=== PATIENT | female | born 1940 | race Caucasian/White ===

== ENCOUNTER → 2016-08-18 | Outpatient (CLI) | payer OTHER | LOC: BRMIMAGING 08:22 | PROVIDERS: ATTEND Family Medicine | DX: Z13.820 Encounter for screening for osteoporosis (principal); M81.0 Age-related osteoporosis without current pathological fracture; Z78.0 Asymptomatic menopausal state ==

== ENCOUNTER → 2017-02-01 | Outpatient (CLI) | payer OTHER | LOC: FLAB 12:56 | PROVIDERS: ATTEND Orthopaedic Surgery Orthopaedic Surgery of the Spine | DX: M51.36 Other intervertebral disc degeneration, lumbar region (principal); M48.06 Spinal stenosis, lumbar region; M51.26 Other intervertebral disc displacement, lumbar region ==

== ENCOUNTER 2017-02-02 09:05 | Inpatient (IN) | payer OTHER ==
--- NOTE | 2017-02-01 14:16 | GHP ---
[f rep st] PREOP HISTORY AND PHYSICAL DATE OF ADMISSION: 02/02/2017 HISTORY: The patient is a pleasant, 76-year-old woman well known to my practice. She has had a dale g history of chronic low back pain. More recently, however, in the past 3 weeks, she has developed severe left lower extremity pain, numbness, and inability to ambulate. She went to the emergency ro om where they performed an MRI and she was found to have a left L3-4 disk herniation with sequestrat ion proximally at the level of the L3 vertebral body. Her pain has been excruciating. She has soug ht my opinion as she would like to proceed with surgery rather than injections due to the severity o f her pain, which on a 1-10 scale is rated a 7 to an 8. Currently 80% to 90% of her symptoms are re ferable to the left lower extremity and the remainder is referable to low back pain. Valsalva type of maneuvers do worsen her pain. She denies any loss of bowel or bladder control. She is ambulatin g using a wheelchair. She has been taking Neurontin and prednisone. SOCIAL HISTORY: Negative for tobacco. Positive for social use of alcohol. FAMILY HISTORY: Heart disease. PAST MEDICAL HISTORY: Borderline hypertension, hypercholesterolemia. PAST SURGICAL HISTORY: Mitral valve repair with 3 vessel coronary artery bypass surgery. DRUG ALLERGIES: Compazine and topical iodine. MEDICATIONS: Pravastatin, metoprolol, lisinopril, citalopram, and hormone replacement. PHYSICAL EXAMINATION: VITAL SIGNS: Blood pressure is 132/88. GENERAL APPEARANCE: The patient is alert and oriented x3. CARDIAC: Regular rate and rhythm without detectable murmur, rub, or gallop. LUNGS: Clear to auscultation. She has no wheezing or rhonchi. NEUROLOGIC: Strength of bilatera l lower extremities to be 5/5 throughout. Light touch is diminished in the left medial knee and med ial leg. Patellar reflexes are 2/4. Achilles reflexes are 1/4 bilaterally. Straight leg raising i s positive on the left and negative on the right. Her gait is antalgic. She is tender to palpation in the left sciatic notch. RADIOGRAPHIC STUDIES: MRI of the lumbar spine dated 01/26/2017 shows severe stenosis at L3-4 with s evere facet arthropathy. She has a large left L3-4 disk herniation with proximal migration at the l evel of the L3 pedicle in the lateral recess. She has mild scoliosis. She has moderate stenosis at L2-3 with facet arthropathy as well. IMPRESSION: 1. Left L3 radiculopathy. 2. Left L3-4 disk sequestration proximally. 3. Severe stenosis L3-4 and moderate stenosis L2-3. 4. Mild lumbar scoliosis. PLAN: The patient will undergo per my recommendation an L2-3, L3-4 partial laminectomy, left L3-4 m icrodiskectomy, and L2 to L4 posterior fusion with instrumentation using interspinous process device for stabilization. Potential risks, benefits, possible complications have been thoroughly discusse d with the patient including, but not limited to, dural tear with CSF leak, meningitis, nerve root i njury, partial or complete paralysis, DVT, PE, pneumonia, stroke, heart attack, hemorrhage, blindnes s, and . The patient's questions have been answered thoroughly. She will be n.p.o. after lg olsen. /[id number]/MODL
[~2017-02-02 09:05] MED LIST: ceFAZolin 2 GM/DEXTROSE 100 ML IV ONE
[2017-02-02] MEDS ORDERED: LR 1,000 ML IV ONE (09:19)
[2017-02-02] MEDS ORDERED: LIDOCAINE 1% 2 ML INJ ID PRN (09:19)
--- NOTE | 2017-02-02 10:22 | PDHPUP ---
History & Physical Update H&P update statement: This history and physical update is based on an assessment of the patient which was completed after admission or registration (within 24 hours), but prior to the surgery/procedure. H&P update: H&P reviewed & patient examined, no change in patient's condition since H&P completed
[2017-02-02] MEDS ORDERED: THROMBIN (BOVINE) 20,000 UNIT VIAL TP ONE (10:52)
[2017-02-02] MEDS ORDERED: BUPIVACAINE 0.25% 30 ML SDV ONE (10:53)
[2017-02-02] MEDS ORDERED: BUPIVACAINE/EPI 0.25% 30 ML SDV ONE (10:54)
[2017-02-02] MEDS ORDERED: methylPREDNISolone SOD SUCC 125 MG/2 ML VIAL ONE (10:54)
[2017-02-02] MEDS ORDERED: BACITRACIN 50,000 UNITS/10 ML SYR IRR ONE (10:54)
[2017-02-02] MEDS ORDERED: MIDAZOLAM 2 MG/2 ML VIAL IVP ONE (10:59)
--- NOTE | 2017-02-02 11:01 | PDANEPAE ---
ANE Past Medical History - Cardiovascular History Hx Hypertension: Yes Hx Arrhythmias: No Hx Chest Pain: No Hx Coronary Artery / Peripheral Vascular Disease: Yes Hx CHF / Valvular Disease: No Hx Palpitations: No Cardiovascular History Comment: cabg x3v and valve replacement - Pulmonary History Hx COPD: No Hx Asthma/Reactive Airway Disease: No Hx Recent Upper Respiratory Infection: No Hx Oxygen in Use at Home: No Hx Sleep Apnea: No Sleep Apnea Screening Result - Last Documented: Negative Pulmonary History Comment: hx of lung bx - Neurologic History Hx Cerebrovascular Accident: No Hx Seizures: No Hx Dementia: No Neurologic History Comment: peripheral neuropathy. numbness and tingling in inner left thigh - Endocrine History Hx Diabetes: No Hypothyroid: No Hyperthyroid: No Obesity: no - Renal History Hx Renal Disorders: No - Liver History Hx Hepatic Disorders: No - Neurological & Psychiatric Hx Hx Neurological and Psychiatric Disorders: No Neurological / Psychiatric History Comment: claustrophobia with MRI - Cancer History Hx Cancer: No - Congenital Disorder History Hx Congenital Disorders: No - GI History GERD: no Hx Gastrointestinal Disorders: No - Other Health History Other Health History: wears glasses - Chronic Pain History Chronic Pain: Yes (sciatic nerve pain) - Surgical History Prior Surgeries: open heart surgery 9 yrs ago. 40 yrs ago left lung bx ANE Review of Systems - Exercise capacity METS (RN): 4 METS ANE Patient History - Allergies Allergies/Adverse Reactions: iodine Allergy (Verified 02/01/17 15:46) Itching prochlorperazine [From Compazine] Allergy (Verified 02/02/17 09:47) muscle spasms - Home Medications Home Medications: Gabapentin [Neurontin 100 MG (*)] 100 mg PO DAILY@06,14 02/01/17 [Last Taken 09/16 06:00] Lisinopril [Zestril 2.5 mg (*)] 1.25 mg PO DAILY 02/01/17 [Last Taken 01/31/17] Metoprolol Succinate Xr [Toprol Xl 25 mg (*)] 12.5 mg PO DAILY 02/01/17 [Last Taken 02/01/17 20:00] Pravastatin Sodium [Pravachol] 80 mg PO HS 02/01/17 [Last Taken 02/01/17 19:00] predniSONE [predniSONE TAPER] 1 each PO .EDIT DOSE INSTRUCT 02/01/17 [Last Taken 08/03/17 20mg] Gabapentin [Neurontin 100 MG (*)] 200 mg PO DAILY@06 02/02/17 [Last Taken 200mg] Herbals/Supplements -Info Only 1 ea PO DAILY 02/02/17 [Last Taken 01/19/17] - NPO status NPO Since - Liquids (Date): 02/01/17 - Anes Hx Anes Hx: no prior problems - Smoking Hx Smoking Status: Never smoked Marijuana use: No - Alcohol Use Alcohol Use: Rarely - Family Anes Hx Family Anes Hx: neg - N/A Family Hx Anesthesia Complications: none ANE Labs/Vital Signs - Vital Signs Blood Pressure: 166/103 Heart Rate: 103 Respiratory Rate: 16 Height: 167.64 cm Weight: 67.132 kg ANE Physical Exam - Airway Neck exam: FROM Mallampati Score: Class 1 Mouth exam: normal dental/mouth exam - Pulmonary Pulmonary: no respiratory distress, no rales or rhonchi, clear to auscultation - Cardiovascular Cardiovascular: regular rate and rhythym - ASA Status ASA Status: II ANE Anesthesia Plan Anesthesia Plan: general endotracheal anesthesia
[2017-02-02] MEDS ORDERED: fentaNYL 100 MCG/2 ML INJ ONE ×2 (11:12→14:02)
[2017-02-02] MEDS ORDERED: REMIFENTANIL HCL 1 MG VIAL ONE (11:12)
[2017-02-02] MEDS ORDERED: PROPOFOL 200 MG/20 ML VIAL ONE (11:13)
[2017-02-02] MEDS ORDERED: ROCURONIUM 50 MG/5 ML VIAL ONE ×2 (11:13→12:03)
[2017-02-02] MEDS ORDERED: ONDANSETRON 4 MG/2 ML VIAL ONE (11:13)
[2017-02-02] MEDS ORDERED: DEXAMETHASONE 4 MG/ML VIAL ONE ×2 (11:13)
[2017-02-02] MEDS ORDERED: PROPOFOL/EMULSION 500 MG/50 ML BOTTLE IV ONE (11:13)
[2017-02-02] MEDS ORDERED: LIDOCAINE 2% 5 ML SDV ONE (11:19)
[2017-02-02] MEDS ORDERED: PHENYLEPHRINE HCL 100 MCG/ML SYR ONE (11:22)
[2017-02-02] MEDS ORDERED: oxyCODONE IR 5 MG TAB PO PRN (11:33)
[2017-02-02] MEDS ORDERED: ZOLPIDEM TARTRATE 5 MG TAB PO PRN (11:33)
[2017-02-02] MEDS ORDERED: METHOCARBAMOL 750 MG TAB PO PRN (11:33)
[2017-02-02] MEDS ORDERED: BISACODYL 10 MG SUPP PR PRN (11:33)
[2017-02-02] MEDS ORDERED: ONDANSETRON DISINTEGRATING 4 MG TAB PO PRN (11:33)
[2017-02-02] MEDS ORDERED: LACTULOSE 20 GM/30 ML UDCUP PO PRN (11:33)
[2017-02-02] MEDS ORDERED: diphenhydrAMINE 25 MG CAP PO PRN (11:33)
[2017-02-02] MEDS ORDERED: POLYETHYLENE GLYCOL 3350 17 GM PKT PO PRN (11:33)
[2017-02-02] MEDS ORDERED: MAGNESIUM HYDROXIDE 30 ML UDCUP PO PRN (11:33)
[2017-02-02] MEDS ORDERED: ONDANSETRON 4 MG/2 ML VIAL IVP PRN ×2 (11:33→11:49)
[2017-02-02] MEDS ORDERED: NS 1,000 ML IV SCH (11:45)
[2017-02-02] MEDS ORDERED: PROMETHAZINE HCL 25 MG/ML INJ IVP PRN (11:49)
[2017-02-02] MEDS ORDERED: D5W LR 500 ML IV PRN (11:49)
[2017-02-02] MEDS ORDERED: OXYCODONE/APAP 5/325 TAB PO PRN (11:49)
[2017-02-02] MEDS ORDERED: fentaNYL 100 MCG/2 ML INJ IVP PRN ×2 (11:49)
[2017-02-02] MEDS ORDERED: NALOXONE HCL 0.4 MG/ML INJ IVP PRN ×2 (11:49→14:31)
[2017-02-02] MEDS ORDERED: HYDROCODONE/APAP 5/325 TAB PO PRN (11:49)
[2017-02-02] MEDS ORDERED: PHENYLEPHRINE 10 MG/ML SDV ONE (12:37)
[2017-02-02] MEDS ORDERED: AVITENE POWDER 1 GM JAR TP ONE (12:57)
[2017-02-02] MEDS ORDERED: DIAZEPAM 10 MG/2 ML SYR IVP PRN (13:55)
--- NOTE | 2017-02-02 13:58 | POSTOPPROG ---
Post Op Note Date of Operation: 02/02/17 Surgeon: Basia Gifford Travel Director: Dean Sheldon SA Anesthesiologist: Leigh Blake Anesthesia: GET(General Endotracheal) Pre-op Diagnosis: Left L3-4 HNP and severe stenosis L2-4, instability Post-op Diagnosis: same Indication: severe Left Leg pain Procedure: Left L3-4 microdisc, L2-4 partial lami, post fusion/I w/ ISPDs Findings: severe facet instability, sev stenosis L2-4, L L3-4 sequestered HNP Inf/Abcess present in the surg proc area at time of surgery?: No Depth: Deep Incisional (Fascial) EBL: 50 cc Total fluids administered: 1300 cc Complications: None. No changes in SSEPs, MEPs, and EMGs. Drains: Eros Montgomery
[2017-02-02] MEDS ORDERED: SUGAMMADEX SODIUM 200 MG/2 ML VIAL IVP ONE (14:09)
--- NOTE | 2017-02-02 14:31 | POSTANESTH ---
Post Anesthetic Evaluation Cardiovascular Status: Similar to Pre-Op Cond, Tx Hyper/Hypo-tension Respiratory Status: Normal, Stable Level of Consciousness/Mental Status: Can Participate in Eval Pain Control: Adequate, Prn Tx Ordered Nausea/Vomiting Control: Adequate, Prn Tx Ordered Complications Possibly Related to Anesthesia: None Noted
[2017-02-02] MEDS: LABETALOL HCL 50 MG/10 ML SYR IVP PRN ×3 (14:52→15:03)
[2017-02-02] MEDS ORDERED: LABETALOL HCL 50 MG/10 ML SYR ONE (14:52)
[2017-02-02] MEDS: ACETAMINOPHEN 500 MG TAB PO SCH ×2 (17:17→22:05)
[2017-02-02] MEDS: GABAPENTIN 100 MG CAP PO SCH (17:18)
[2017-02-02] MEDS: SENNOSIDES/DOCUSATE SODIUM TAB PO SCH (20:23)
[2017-02-02] MEDS: ceFAZolin 2 GM/DEXTROSE 100 ML IV SCH (20:24)
[2017-02-02] MEDS ORDERED: NON-FORMULARY NEW DRUG (Pravastatin Sodium [Pravachol] 80 MG) PO SCH (21:00)
[2017-02-02] MEDS ORDERED: PRAVASTATIN SODIUM 40 MG TAB PO SCH (21:00)
--- NOTE | 2017-02-02 21:47 | GOP ---
[f rep st] OPERATIVE REPORT DATE OF OPERATION: 02/02/2017 SURGEON: Basia Ray MD SPINE SUPERVISOR: Mauricio Sheldon SA ANESTHESIA: General endotracheal intubation. ANESTHESIOLOGIST: Patria Blake DO PREOPERATIVE DIAGNOSIS: 1. L2-3 and L3-4 severe spinal stenosis. 2. Lumbar mild scoliosis with facet joint instability. 3. Left L3-4 disk extrusion with sequestration cephalad to the L3 pedicle level. 4. Left L3 radiculopathy. POSTOPERATIVE DIAGNOSIS: 1. L2-3 and L3-4 severe spinal stenosis. 2. Lumbar mild scoliosis with facet joint instability. 3. Left L3-4 disk extrusion with sequestration cephalad to the L3 pedicle level. 4. Left L3 radiculopathy. PROCEDURE PERFORMED: L2-3 and L3-4 partial laminectomies, foraminotomies; left L3-4 micro diskectom y; L2-L4 posterolateral arthrodesis with posterior nonsegmental instrumentation using [employer] StabiLink devices. FINDINGS: Bilateral L2-3 and L3-4 facet joint cysts, bilateral L2-3 and L3-4 facet joint arthropath y with severe instability, severe stenosis at L3-4, bczsbcau-mt-wskayc stenosis at L2-3, and left L3 -4 disk sequestration proximally. ESTIMATED BLOOD LOSS: 50 cc. INDICATIONS: The patient is a pleasant 76-year-old woman, whom I met a number of years ago with reg tresa to some chronic low back pain and degenerative scoliosis. More recently, the patient had an acu te onset of left lower extremity pain, tingling and numbness, and inability to ambulate a couple of weeks ago. There was no preceding history. On MRI she was found to have a large left L3-4 disk seq uestration at the level of the L3 pedicle. This matched her exam and she has elected to undergo farrah julissa. No guarantees were given in regard to surgical outcome. Potential risks, benefits, and possi ble complications were thoroughly discussed including, but not limited to dural tear with CSF leak, meningitis, nerve root injury, partial or complete paralysis, nonunion, breakage or pullout of inter nal fixation, lack of improvement in symptomatology, cauda equina syndrome, infection, DVT, PE, pneu monia, stroke, heart attack, hemorrhage, blindness, and . DESCRIPTION OF PROCEDURE: After obtaining both written and verbal consent from the patient, she was brought to the operating room, where she underwent general endotracheal intubation. The patient re ceived IV Ancef. Drew catheter was placed. Neuro monitoring was set up and connected including so matosensory-evoked potentials, motor-evoked potentials, and EMGs. The patient was rolled to the pro ne position on the Steinberg table. All 4 extremities were padded well. The face and eyes were padde d per the anesthesiologist. A lateral lumbar fluoroscopic x-ray was obtained for localization. The n, the lumbar spine was prepped and draped in the normal sterile fashion. A time-out was performed for the entire operating room team, confirming patient's name, date of , planned surgical proce dure including levels, antibiotics given, and allergies to medications. After a sterile prep and drape, a 10-blade knife was used to create a skin incision from L2-L4. The incision was brought down through skin, subcutaneous tissues, and to the overlying dorsal fascia. Paraspinal muscles were stripped in a subperiosteal fashion. Self-retaining retractors were placed. An intraoperative x-ray was obtained using a metallic marker and this showed up to the L3 spinous process. The incision was brought down further distally to gain access to the L3-4 level. A rongeu r was used to remove the supraspinous and interspinous ligaments at L2-3 and L3-4. Significant face t joint hypermobility and instability was very apparent at both levels bilaterally. Under the micro scope, first addressing the L2-3 level, a 2-0 curved curette was used to create a plane between the ligamentum flavum and the epidural space. A Lacey was used to palpate in the epidural space, and idokujgu-nd-tlogcu stenosis was identified. A 2 and 3 mm Kerrison were used to remove ligamentum fl avum hypertrophy and to undercut. Then, the L3 superior lamina was partially removed with a 3 mm Ke rrison to address the L3-4 disk herniation that had migrated cephalad. A left nerve root retractor was used to retract the midline thecal sac and to protect the exiting left L3 nerve root. A sequest ered disk fragment was obvious and that was removed with a pituitary [place] rongeur, and then a 2nd f ragment was also identified in the lateral recess next to the L3 pedicle on the left and was removed again. A [place] was used to palpate ventral to the thecal sac and into the L2-3 and L3-4 foramen and no further compressive pathology existed. Then, the L3-4 level was addressed. Again, significant ligamentum flavum hypertrophy and a very sig nificant facet arthropathy was causing severe central stenosis. Ligamentum flavum was taken down wi th a 2 and 3 mm Kerrison. Undercutting was performed. Again, the facet joints were completely unst able and facet joint cysts were identified at all 4 locations, meaning bilateral L2-3 and L3-4, and were excised with a rongeur. Care was taken to protect the dura. Foraminotomies were performed usi ng a 2 and 3 mm Kerrison. There were no changes in spinal cord monitoring. At this time, using the [employer] StabiLink system, a caliper was used to measure the interspin ous distance at L2-3, which was 8 mm, and L3-4, which was 10 mm. Therefore, a dual lamina clamp isidro suring 8 mm was assembled using the tray device and locking device, and prior to placement at L2-3, crushed cancellous bone graft mixed with demineralized bone matrix was packed in the posterolateral position at L2-3 and L3-4 bilaterally. Then, the dual lamina clamp was seated over some Gel-Foam pl aced at the interspinous space and was tightened down. The screwdriver was used to tighten the lock ing screw. The portable trackman was removed and the dual lamina clamp was inspected and had good purchase o f the prongs within the lamina and spinous process of L2 and L3. Then a 10 mm dual lamina clamp was also assembled and placed in a similar fashion at L3-4 with excellent purchase. A size medium bone morphogenic protein was then prepared per the spray gunner's recommendation, and local autogenous b one graft that had been saved from the patient was packed in the center of the carrier. This was pa cked posterolaterally at L2-3 and L3-4 bilaterally. Then an AP and a lateral fluoroscopic x-ray wer e obtained showing good position of the interspinous process devices at L2-3 and L3-4. A 10 flat MARY drain was placed deep to the fascial layer and sewn in with a 2-0 nylon suture. Sponge and needle count were correct. The lumbar wound was closed using a #1 Vicryl in the deep fas cial layer followed by an 0 Vicryl and skin odalis. 20 cc of 0.25% Marcaine without epinephrine wa s infiltrated into the subcutaneous tissues for additional postoperative pain control. Sterile dres sing was applied. Patient was rolled to the supine position. Drew catheter was removed. A lumbar back brace was placed. Patient was extubated in the operating room, brought to the recovery room i n satisfactory condition. COMPLICATIONS: None. There were no changes in somatosensory evoked potentials, motor evoked potent ials, nor any EMGs. POSTOPERATIVE PLAN: Close neurologic observation, close airway observation, and the patient will be admitted postoperatively. /[id number]/MODL
[2017-02-03] MEDS: ceFAZolin 2 GM/DEXTROSE 100 ML IV SCH ×2 (03:21→12:33)
[2017-02-03] MEDS: GABAPENTIN 100 MG CAP PO SCH ×2 (05:38→14:11)
[2017-02-03] MEDS: ACETAMINOPHEN 500 MG TAB PO SCH ×2 (05:38→14:10)
[2017-02-03] MEDS ORDERED: GABAPENTIN 100 MG CAP PO SCH (06:00)
[2017-02-03 08:17] VITALS: TEMP 98.4
[2017-02-03] MEDS: SENNOSIDES/DOCUSATE SODIUM TAB PO SCH (08:39)
[2017-02-03] MEDS ORDERED: METOPROLOL SUCCINATE XR 25 MG TAB PO SCH (09:00)
[2017-02-03] MEDS ORDERED: LISINOPRIL 2.5 MG TAB PO SCH (09:00)
[2017-02-03 11:48] VITALS: BP 130/90; PULSE 94; RESP 14; O2SAT 96
--- NOTE | 2017-02-03 14:07 | SOAPPROG ---
SOAP Progress Note Assessment/Plan: Assessment: post op day 1, s/p L2-4 partial lami, Left L3-4 micro, post. fusion/I with ISPD Pt doing very well and ready for discharge. Plan: 02/03/17 14:04 D/C to home. Pt has f/u appt. Subjective: Pt states left leg feels great. Notices some weakness still. Incisional pain well controlled. Objective: Vital Signs Temp Pulse Resp BP Pulse Ox 36.9 C 94 14 130/90 H 96 02/03/17 11:47 02/03/17 11:47 02/03/17 11:47 02/03/17 11:47 02/03/17 11:47 02/02/17 02/03/17 02/04/17 05:59 05:59 05:59 Intake Total 400 Output Total 90 Balance 310 BLE motor 5/5 except left quad 4+/5. Avni's negative x 2. Gait markedly improved. ICD10 Worksheet Patient Problems: Problems Problem Status Onset Spinal stenosis, lumbar region, with neurogenic claudication Acute - ICD10 Problem Qualifiers (1) Spinal stenosis, lumbar region, with neurogenic claudication
--- NOTE | 2017-02-03 17:49 | GDS ---
[f rep st] DISCHARGE SUMMARY HOSPITAL COURSE: The patient is a pleasant 76-year-old woman, who has had about a 3-week history of severe left lower extremity pain with an acute onset. There was no preceding trauma. On MRI, she was found to have a large left L3-4 disk herniation sequestered proximally at the level of the L3 pe dicle, as well as stenosis, which was severe at L3-4 and moderate to severe at L2-3. Due to severit y of pain and weakness in her left leg and difficulty with ambulation, she elected to undergo surger y. On 02/02/2017, she was admitted to the hospital. Under a general anesthetic and using neuromoni toring, the patient underwent a left L3-4 microdiskectomy, L2-3 and L3-4 partial laminectomies, post erior fusion with instrumentation using interspinous process devices. At the time of surgery, there was a large left L3-4 sequestered disk herniation proximal at the level of the L3 pedicle into fair ly large fragments. She also had very severe facet arthropathy and instability requiring the direct sales representative ior stabilization with StabiLink devices and possible osteoporosis. Surgery went well without any n eurologic changes or neuromonitoring changes. A drain was placed deep to the fascial layer and sewn in. She was kept on IV antibiotics. Postoperatively, she was seen in PT and OT and became indepen dent in ambulation and activities of daily living. Her preoperative left lower extremity pain resol zakiya completely. Incisional pain was well tolerated. Patient was eating well, urinating freely, and had had a bowel movement. Her drain was removed by me without difficulty and in total. Wound was clean, dry, and intact. The re were no signs of infection. Neurologically, she remained with some left quadriceps weakness but otherwise was moving about the room much more freely than previously. The patient was doing exceedingly well and is being discharged home in satisfactory condition. She knows to wear the back brace at all times except for during showers. Her will do a daily dr tirado dressing change. She needs to avoid all antiinflammatories. She needs to avoid bending, lifting, twisting. She has a follow-up appointment for 2 weeks from now in my office. She was given prescr iptions for Percocet, Valium, and Keflex in advance from my office. She will also wean off her kathy pentin, and we discussed this. Overall, she has done exceedingly well and is being discharged home in satisfactory condition. /[id number]/MODL
== END 2017-02-03 14:44 | disposition home or self-care (01) | DRG 460 ==
LOC: F3N 09:05
PROVIDERS: ADMIT Orthopaedic Surgery Orthopaedic Surgery of the Spine; ATTEND Orthopaedic Surgery Orthopaedic Surgery of the Spine
PROC: 4A1004G Monitoring of Central Nervous Electrical Activity, Intraoperative, Open Approach (ICD-10-PCS; principal; 2017-02-02 10:45)
PROC: 0SG10AJ Fusion of 2 or more Lumbar Vertebral Joints with Interbody Fusion Device, Posterior Approach, Anterior Column, Open Approach (ICD-10-PCS; principal; 2017-02-02 10:45)
PROC: 01NB0ZZ Release Lumbar Nerve, Open Approach (ICD-10-PCS; principal; 2017-02-02 10:45)
DX: M51.26 Other intervertebral disc displacement, lumbar region (principal); M81.0 Age-related osteoporosis without current pathological fracture; E78.00 Pure hypercholesterolemia, unspecified; Z95.1 Presence of aortocoronary bypass graft; M48.06 Spinal stenosis, lumbar region; M41.86 Other forms of scoliosis, lumbar region; M54.16 Radiculopathy, lumbar region; I10 Essential (primary) hypertension; Z95.4 Presence of other heart-valve replacement
CPT/HCPCS: 97161-GP; 97165-GO; 97535-GO; C1713; C1762; G8978-GP-CJ; G8979-GP-CJ; G8980-GP-CJ; G8987-GO-CI; G8988-GO-CI; G8989-GO-CI; J0690; J1100; J2250; J2370; J2405; J2704; J3010

== ENCOUNTER 2017-02-11 07:12 | Emergency (ER) | payer OTHER ==
[2017-02-11] MEDS ORDERED: LORazepam 2 MG/ML INJ IVP ONE ×2 (07:25→08:49)
[2017-02-11] MEDS ORDERED: NS 1,000 ML IV ONE (07:25)
[2017-02-11] MEDS ORDERED: HYDROmorphONE/DILAUDID 1 MG/ML SYR IVP ONE (07:25)
--- NOTE | 2017-02-11 07:28 | EDPHY ---
H & P Time Seen by Provider: 02/11/17 07:24 HPI/ROS: CHIEF COMPLAINT: Leg cramping HISTORY OF PRESENT ILLNESS: The patient is a 76-year-old female who had lumbar back surgery with Dr. Gifford on the . She had laminectomy of L2-3 and 4. She returned home the next day and had been doing fairly well with her pain controlled on 5 mg of Valium q.8 hours and 5 mg Percocet every 6 hours. She also finished a course of Keflex. However over the last day and a half she has had increasing muscle spasms in her thighs. Her has been trying to massage them without significant relief. states that the Valium and Percocet are not working. The patient denies low back pain. No bowel or bladder abnormalities. No weakness or numbness. She is able to ambulate with her walker. She has not had a fever the swelling or redness. No drainage or bleeding. REVIEW OF SYSTEMS: Constitutional: denies: chills, fever, recent illness, recent injury EENTM: denies: blurred vision, double vision, nose congestion Respiratory: denies: cough, shortness of breath Cardiac: denies: chest pain, irregular heart rate, lightheadedness, palpitations Gastrointestinal/Abdominal: denies: abdominal pain, diarrhea, nausea, vomiting, blood streaked stools Genitourinary: denies: dysuria, frequency, hematuria, pain Musculoskeletal: See HPI Skin: denies: lesions, rash, jaundice, bruising Neurological: denies: headache, numbness, paresthesia, tingling, dizziness, weakness Hematologic/Lymphatic: denies: blood clots, easy bleeding, easy bruising Immunologic/allergic: denies: HIV/AIDS, transplant EXAM: GENERAL: Well-appearing, well-nourished and in no acute distress. HEAD: Atraumatic, normocephalic. EYES: Pupils equal round and reactive to light, extraocular movements intact, sclera anicteric, conjunctiva are normal. ENT: TMs normal, nares patent, oropharynx clear without exudates. Moist mucous membranes. NECK: Normal range of motion, supple without lymphadenopathy or JVD. LUNGS: Breath sounds clear to auscultation bilaterally and equal. No wheezes rales or rhonchi. HEART: Regular rate and rhythm without murmurs, rubs or gallops. ABDOMEN: Soft, nontender, normoactive bowel sounds. No guarding, no rebound. No masses appreciated. BACK: No CVA tenderness, no spinal tenderness, step-offs or deformities EXTREMITIES: Normal range of motion, no pitting or edema. No clubbing or cyanosis. NEUROLOGICAL: Cranial nerves II through XII grossly intact. Normal speech, normal gait. 5/5 strength, normal movement in all extremities, normal sensation PSYCH: Normal mood, normal affect. SKIN: incision clean dry and intact. No swelling or erythema. Source: Patient Exam Limitations: No limitations - Medical/Surgical History Hx Asthma: No Hx Chronic Respiratory Disease: No Hx Diabetes: No Hx Cardiac Disease: Yes Hx Renal Disease: No Hx Cirrhosis: No Hx Alcoholism: No Hx HIV/AIDS: No Hx Splenectomy or Spleen Trauma: No - Family History Significant Family History: No pertinent family hx - Social History Smoking Status: Never smoked Alcohol Use: Sober Drug Use: None Constitutional: Initial Vital Signs Temperature (C) 36.6 C 02/11/17 07:12 Heart Rate 103 H 02/11/17 07:12 Respiratory Rate 16 02/11/17 07:12 Blood Pressure 110/75 02/11/17 07:12 O2 Sat (%) 96 02/11/17 07:12 O2 Delivery Mode Room Air O2 (L/minute) 2 Allergies/Adverse Reactions: iodine Allergy (Verified 02/01/17 15:46) Itching prochlorperazine [From Compazine] Allergy (Verified 02/02/17 09:47) muscle spasms Home Medications: Medication Instructions Recorded Cephalexin [Keflex] 500 mg PO QID #12 capsule 02/03/17 Diazepam [Valium 5 MG (*)] 5 mg PO Q8 PRN #30 tab 02/03/17 Lisinopril [Zestril 2.5 mg (*)] 1.25 mg PO DAILY #0 tab 02/03/17 Pravastatin Sodium [Pravachol] 80 mg PO HS #0 tab 02/03/17 oxyCODONE HCL/ACETAMINOPHEN 1 - 2 each PO Q6 #40 tablet 02/03/17 [Percocet 5-325 mg Tablet] Gabapentin [Neurontin 100 MG (*)] 100 mg PO AD #30 cap 02/11/17 methylPREDNISolone [Medrol Dose 1 each PO AD #1 ea 02/11/17 [place]] Medical Decision Making ED Course/Re-evaluation: 8:05 a.m. I discussed the case with Dr. Gifford. She states that the patient had been on Neurontin for her neuropathic pain in the past but was doing well after the surgery so they discontinued it. She suggest we start her back on Neurontin 100 mg morning and noon and 200 mg at night. She also suggests 10 mg of Decadron and a prescription for Medrol Dosepak. She states that she will follow up with her in the office on Monday. 8:50 a.m. we discussed medications and plan. Patient and felt comfortable with this. I will give her another dose of Ativan. Her states that the primary problem is that she cannot sleep well because she is wearing a brace and is having pain. They have tried all different types of positions and recliners. Differential Diagnosis: Partial list of the Differential diagnosis considered include but were not limited to; muscle strain, neuropathy, and although unlikely based on the history and physical exam, I also considered surgical infection, fracture, spinal cord compression. I discussed these differential diagnoses and the plan with the patient as well as the usual and expected course. The patient understands that the diagnosis is provisional and that in medicine we are not always correct and that further workup is often warranted. Usual and customary warnings were given. All of the patient's questions were answered. The patient was instructed to return to the emergency department should the symptoms at all worsen or return, otherwise to followup with the physician as we discussed. - Data Points Medications Given: Discontinued Medications Dexamethasone (Decadron Injection) 10 mg IVP EDNOW ONE Stop: 02/11/17 08:07 Last Admin: 02/11/17 08:32 Dose: 10 mg Gabapentin (Neurontin) 100 mg PO EDNOW ONE Stop: 02/11/17 08:06 Last Admin: 02/11/17 08:32 Dose: 100 mg Hydromorphone HCl (Dilaudid) 1 mg IVP EDNOW ONE Stop: 02/11/17 07:26 Last Admin: 02/11/17 07:39 Dose: 1 mg Sodium Chloride (Ns) 1,000 mls @ 0 mls/hr IV EDNOW ONE; Wide Open PRN Reason: Protocol Stop: 02/11/17 07:26 Last Admin: 02/11/17 07:39 Dose: 1,000 mls Lorazepam (Ativan Injection) 1 mg IVP EDNOW ONE Stop: 02/11/17 07:26 Last Admin: 02/11/17 07:40 Dose: 1 mg Lorazepam (Ativan Injection) 1 mg IVP EDNOW ONE Stop: 02/11/17 08:50 Last Admin: 02/11/17 08:58 Dose: 1 mg Departure - Departure Disposition: Home, Routine, Self-Care Clinical Impression: Radiculopathy Qualifiers: Spinal region: lumbosacral Qualified Code(s): M54.17 - Radiculopathy, lumbosacral region Condition: Fair Instructions: Lumbar Radiculopathy (ED) Referrals: Patient,NotPresent [Unknown] - As per Instructions Basia Gifford MD [Medical Doctor] - As per Instructions Prescriptions: Gabapentin [Neurontin 100 MG (*)] 100 mg PO AD #30 cap methylPREDNISolone [Medrol Dose [place]] 1 each PO AD #1 ea
[2017-02-11 07:54] VITALS: RESP 16; TEMP 97.9
[2017-02-11] MEDS ORDERED: GABAPENTIN 100 MG CAP PO ONE (08:05)
[2017-02-11] MEDS ORDERED: DEXAMETHASONE 10 MG/ML VIAL IVP ONE (08:06)
[2017-02-11 09:33] VITALS: BP 155/86; PULSE 99; O2SAT 95
== END 2017-02-11 09:49 | disposition home or self-care (01) ==
LOC: EDUNIT#
DX: M54.17 Radiculopathy, lumbosacral region (principal); E86.9 Volume depletion, unspecified
CPT/HCPCS: 96361; 96374; 96375; 96376; 99284; J1100; J1170; J2060

== ENCOUNTER → 2017-03-15 | Outpatient (CLI) | payer OTHER | LOC: FIMAGING 06:49 | PROVIDERS: ATTEND Orthopaedic Surgery Orthopaedic Surgery of the Spine | DX: M43.16 Spondylolisthesis, lumbar region (principal); M51.36 Other intervertebral disc degeneration, lumbar region; M51.37 Other intervertebral disc degeneration, lumbosacral region; Z98.1 Arthrodesis status ==

== ENCOUNTER → 2017-04-26 | Outpatient (CLI) | payer OTHER | LOC: FIMAGING 06:45 | PROVIDERS: ATTEND Orthopaedic Surgery Orthopaedic Surgery of the Spine ==

== ENCOUNTER → 2017-07-28 | Outpatient (CLI) | payer OTHER | LOC: FIMAGING 06:53 | PROVIDERS: ATTEND Orthopaedic Surgery Orthopaedic Surgery of the Spine | DX: M96.1 Postlaminectomy syndrome, not elsewhere classified (principal) ==

== ENCOUNTER → 2018-10-25 | Outpatient (CLI) | payer OTHER | LOC: BRMIMAGING 09:03 | PROVIDERS: ATTEND Family Medicine | DX: M81.0 Age-related osteoporosis without current pathological fracture (principal); Z78.0 Asymptomatic menopausal state ==